=== PATIENT | male | born 1950 | race African-American/Black ===

== ENCOUNTER 2021-06-20 11:44 | Outpatient (CLI) | payer MEDICARE ==
--- NOTE | 2021-06-20 13:30 | Ultrasound Report ---
ULTRASOUND SCROTUM INDICATION: R10.2. COMPARISON None available. FINDINGS -- RIGHT TESTIS: Size: 3.7 x 1.6 x 2.9 cm. Echotexture: Normal. Color Doppler Flow: Normal. Lesions: None. EPIDIDYMIS: Size: Normal. Echotexture: Normal. Color Doppler Flow: Normal. Lesions: Small 1 cm ep ididymal head cyst Hydrocele: None. Varicocele: None. Additional Findings: None. FINDINGS -- LEFT TESTIS: Size: 3.5 x 1.6 x 2.2 cm. Echotexture: Normal. Color Doppler Flow: Normal. Lesions: None. EPIDIDYMIS: Size: Normal. Echotexture: Normal. Color Doppler Flow: Normal. Lesions: None. Hydrocele: None. Varicocele: None. Additional Findings: Probable right inguinal hernia containing bowel IMPRESSION: 1. Probable bowel containing right inguinal hernia. CT pelvis may be confirmatory 2. 1 cm right epididymal head cyst Signer Name: Arnoldo Benítez MD Signed: 06/20/2021 1:26 PM Workstation Name: [id number]
== END 2021-06-20 11:45 | disposition home or self-care (01) ==
LOC: US 11:44
PROVIDERS: ATTEND Surgery
DX: N50.3 Cyst of epididymis (principal); K40.91 Unilateral inguinal hernia, without obstruction or gangrene, recurrent
CPT/HCPCS: 93975

== ENCOUNTER 2021-07-13 10:12 | Day surgery (SDC) | payer MEDICARE ==
[~2021-07-13 10:12] MED LIST: ceFAZolin/STERILE WATER 2 GM/20 ML SYRINGE IV SCH
[2021-07-13] MEDS ORDERED: LACTATED RINGERS 1,000 ML ONE (10:38)
[2021-07-13] MEDS ORDERED: MAGNESIUM OXIDE 400 MG TAB PO SCH (10:44)
[2021-07-13] MEDS ORDERED: ACETAMINOPHEN 325 MG TAB PO ONE (10:44)
[2021-07-13] MEDS ORDERED: HYDROmorphone 0.5 MG/0.5 ML INJ IV PRN ×2 (10:45)
[2021-07-13] MEDS ORDERED: ONDANSETRON 4 MG/2 ML INJ IV PRN (10:45)
[2021-07-13] MEDS ORDERED: LACTATED RINGERS 1,000 ML IV SCH (10:45)
--- NOTE | 2021-07-13 10:46 | Anesthesia Day of Surgery ---
Anesthesia Day of Surgery - Day of Surgery Patient Examined: Yes Patient H&P Reviewed: Yes Patient is NPO: Yes
--- NOTE | 2021-07-13 10:47 | Anesthesia Consultation ---
Anesthesia Consult and Med Hx Date of service: 07/13/21 - Airway Anesthetic Teeth Evaluation: Good (Two missing) ROM Head & Neck: Adequate Mental/Hyoid Distance: Adequate Mallampati Class: Class II Intubation Access Assessment: Good - Pre-Operative Health Status ASA Pre-Surgery Classification: ASA2 Proposed Anesthetic Plan: General - Pulmonary Hx Smoking: No Hx Sleep Apnea: No - Central Nervous System Hx Psychiatric Problems: No - Gastrointestinal Hx Gastroesophageal Reflux Disease: No - Other Systems Hx Cancer: No Hx Obesity: No
[2021-07-13] MEDS ORDERED: propofoL 200 MG/20 ML VIAL IV ONE (10:52)
[2021-07-13] MEDS ORDERED: ROCURONIUM 50 MG/5 ML INJ IV ONE ×2 (10:52→14:35)
[2021-07-13] MEDS ORDERED: LIDOCAINE MPF (2%) 20 MG/1 ML VIAL 5 ML ONE (10:52)
[2021-07-13] MEDS ORDERED: fentaNYL 100 MCG/2 ML INJ ONE (10:52)
[2021-07-13] MEDS ORDERED: CELECOXIB 200 MG CAP PO SCH (11:00)
[2021-07-13] MEDS ORDERED: MIDAZOLAM 2 MG/2 ML INJ IV NR (12:00)
[2021-07-13] MEDS ORDERED: LIDOCAINE (1%) 10 MG/1 ML VIAL 20 ML MDV ONE (13:52)
[2021-07-13] MEDS ORDERED: BUPIVACAINE/PF (0.5%) 5 MG/1 ML 30 ML VIAL INFILTRATI ONE ×2 (13:52→14:26)
[2021-07-13] MEDS ORDERED: LIDOCAINE (1%) 10 MG/1 ML VIAL 20 ML MDV INFILTRATI ONE (14:26)
[2021-07-13] MEDS ORDERED: WATER FOR IRRIG STERILE 1,500 ML BOTTLE IR ONE (14:27)
[2021-07-13] MEDS ORDERED: dexAMETHasone 20 MG/5 ML VIAL ONE (14:35)
[2021-07-13] MEDS ORDERED: GLYCOPYRROLATE 0.4 MG/2 ML INJ ONE ×3 (14:35→14:57)
[2021-07-13] MEDS ORDERED: KETOROLAC 30 MG/1 ML INJ ONE (14:35)
[2021-07-13] MEDS ORDERED: ONDANSETRON 4 MG/2 ML INJ ONE (14:35)
--- NOTE | 2021-07-13 15:11 | Short Stay Summary ---
Short Stay Documentation Date of service: 07/13/21 - History Principal diagnosis: right inguinal hernia H&P: obtained from office - Allergies and Medications Current Medications: Allergies No Known Allergies Allergy (Unverified 07/04/21 11:49) Home Medications Medication Instructions Recorded Confirmed Last Taken Type No Known Home Medications [No 07/04/21 07/04/21 Unknown History Reported Home Medications] Active Medications Cefazolin Sodium (Cefazolin/Sterile Water 2 Gm/20 Ml Syringe) 2 gm IV PREOP DANYELLE Celecoxib (Celecoxib 200 Mg Cap) 200 mg PO PREOP DANYELLE Last Admin: 07/13/21 11:10 Dose: 200 mg Hydromorphone HCl (Hydromorphone 0.5 Mg/0.5 Ml Inj) 0.25 mg IV Q10MIN PRN PRN Reason: Pain, Moderate (4-6) Stop: 07/14/21 10:44 Hydromorphone HCl (Hydromorphone 0.5 Mg/0.5 Ml Inj) 0.5 mg IV Q10MIN PRN PRN Reason: Pain , Severe (7-10) Stop: 07/14/21 10:44 Lactated Ringer's (Lactated Ringers) 1,000 mls @ 125 mls/hr IV DIRECT DANYELLE Last Admin: 07/13/21 11:30 Dose: 125 mls/hr Magnesium Oxide (Magnesium Oxide 400 Mg Tab) 400 mg PO ONCE DANYELLE Last Admin: 07/13/21 11:10 Dose: 400 mg Midazolam HCl (Midazolam 2 Mg/2 Ml Inj) 2 mg IV PREOP NR Stop: 07/13/21 23:59 Last Admin: 07/13/21 13:00 Dose: 2 mg Ondansetron HCl (Ondansetron 4 Mg/2 Ml Inj) 4 mg IV ONCE PRN PRN Reason: Nausea And Vomiting - Brief post op/procedure progress note Date of procedure: 07/13/21 Pre-op diagnosis: right inguinal hernia Post-op diagnosis: same Procedure: robotic assisted right inguinal hernia repair with mesh Anesthesia: GETA, local, other (right ilioinguinal nerve block) Findings: indirect inguinal hernia on right Surgeon: ZARA GARCIA Saddle Stitch Operator: ISAAC RICHARDSON Estimated blood loss: minimal Pathology: none Condition: stable - Hospital course Hospital course: Pt observed in PACU and discharged to home in stable condition - Disposition Condition at discharge: Good Disposition: 01 HOME / SELF CARE / HOMELESS Short Stay Discharge Plan Activity: other (no heavy lifting) Diet: regular Wound: open to air, per your surgeon's advice Additional Instructions: SEE PRINTED INSTRUCTIONS Follow up with: PRIMARY CARE, [Primary Care Provider] - 7 Days ZARA GARCIA DO [Staff Physician] - 14 Days Prescriptions: Ibuprofen [Motrin] 800 mg PO Q8HR PRN #30 tablet PRN Reason: Pain, Moderate (4-6) HYDROcodone/APAP 5-325 [[place] 5/325] 1 each PO Q6HR PRN #20 tablet PRN Reason: Pain , Severe (7-10)
[2021-07-13] MEDS ORDERED: HYDROcodone/ACETAMINOPHEN 5-325 MG TAB ONE (15:58)
[2021-07-13] MEDS ORDERED: HYDROcodone/ACETAMINOPHEN 5-325 MG TAB PO PRN (16:17)
[2021-07-13 16:49] VITALS: BP 149/73
--- NOTE | 2021-07-13 17:53 | Post Anesthesia Evaluation ---
- Post Anesthesia Evaluation Patient Participated: Yes Airway Patent: Yes Stable Respiratory Function: Yes Nausea/Vomiting: No Temp > 96.8F: Yes Pain Manageable: Yes Adequeate Hydration: Yes Anesthesia Complications: No Block Receding Appropriately: Not Applicable Patient on Ventilator: No
--- NOTE | 2021-07-16 12:53 | Operative Report ---
Operative Report Operative Report: Date of procedure: 07/13/21 Pre-op diagnosis: right inguinal hernia Post-op diagnosis: same Procedure: robotic assisted right inguinal hernia repair with mesh Anesthesia: GETA, local, other (right ilioinguinal nerve block) Findings: indirect inguinal hernia on right Surgeon: ZARA GARCIA Cartridge Gauger: ISAAC RICHARDSON Estimated blood loss: minimal Pathology: none Condition: stable Hospital course: Pt observed in PACU and discharged to home in stable condition Condition at discharge: Good Disposition: 01 HOME / SELF CARE / HOMELESS HPI and indication: Patient is a 71-year-old male who was referred to the surgery clinic for a bulge in the right groin. He was found to have a reducible right inguinal hernia on physical exam. It was recommended that the hernia be repaired. I discussed all risk, benefits, alternatives to repair with the patient and questions were answered. I explained that if the hernia was found on the left side at the same time, this would be fixed as well. The patient was agreeable. Consent obtained for robotic assisted right inguinal hernia repair with mesh, possible left, possible open. The entire interview was conducted using the [employer] cushion builder. Procedure in detail: Patient was identified in the preoperative area, take back to operating room placed on operative table in supine position. After anesthesia was induced both arms were tucked and all bony prominences padded appropriately. A Phan catheter was sterilely placed by the circulating nurse. The abdomen and b/l groins were then prepped and draped in usual sterile fashion and a timeout performed. Local anesthetic was infiltrated to skin at the intended incision sites. A supraumbilical incision was made through which a Veress needle was inserted. Veress needle positioning was confirmed using saline drop test and the abdomen insufflated to 15 mmHg. Once the abdomen was insufflated, the Veress needle was removed and a 5 mm Optiview trocar was placed as incision. The abdomen is inspected there was no underlying injury to any of the abdominal structures. Patient was placed in Trendelenburg and the pelvis examined. There was a right inguinal hernia and no obvious hernia on the left. At this point, an 8 mm right upper quadrant and left upper quadrant robotic trocars were then placed under direct visualization. The 5 mm supraumbilical trocar was removed and replaced with a 12 mm balloon trocar under direct visualization. A Ray-Mely was placed into the abdomen. The robot was then docked. A fenestrated bipolar was placed into arm #2 and a monopolar scissor in arm #1. The surgeon was then transferred to the console. First, I created a right sided preperitoneal flap. The peritoneum was scored ap proximately 5 to 6 cm from the hernia defect. The peritoneum was then incised from the midline to the ASIS. The preperitoneal flap was then developed in an avascular plane. I first defined the medial margin by dissecting to the pubic tubercle. The pubic tubercle was cleared of overlying fatty tissue using blunt dissection. I then created the lateral margin in a similar fashion. Great care was taken to avoid injury to any nerves. There was a direct inguinal hernia and the hernia sac was gently reduced using blunt dissection and transecting cremasteric fibers with electrocautery. During the dissection, the cord structures were identified and protected. The cord structures and vas deferens were visualized throughout the entire dissection. Once the hernia sac was completely reduced, the peritoneal flap was checked for hemostasis. Any additional cremasteric fibers that were were tenting up the peritoneum were divided. Hemostasis was carefully ensured. The hernia was repaired using a RIGHT LARGE 3D max mesh. The mesh along with suture material was placed into the abdomen by the assistant grocery. The mesh was positioned into the preperitoneal flap in the usual fashion. The medial portion of the mesh was sutured to pubic tubercle using an interrupted 2-0 Vicryl stitch. The lateral aspect of the mesh was sutured to the anterior lateral abdominal wall using a 2-0 Vicryl interrupted stitch. The mesh was seen to lay flat in the pocket with excellent coverage. A 18 F needle/angiocath was inserted through the right lower abdominal wall into the preperitoneal pocket by the assistant grocery surgeon. The peritoneum was then reapproximated using 3-0 running V- Loc stitch. The entirety of the mesh was covered with peritoneum. The robot was then undocked and the surgeon scrubbed back in. The remainder of the case was performed laparoscopically. All sharp materials along with a Ray-Mely were removed from the abdomen under direct visualization. The 12 mm port was removed and the fascia closed using a interrupted 0 Vicryl stitch. The abdomen was then slowly desufflated and the mesh was seen to lay flat in the preperitoneal space. The remaining trocars were removed. Preperitoneal air was evacuated via the angiocath and it was then removed. Skin incisions were once again infiltrated with local anesthetic. RIGHT ilioinguinal nerve block was also performed with 5 cc of local anesthetic. The skin incisions were approximated with 4-0 Monocryl subcuticular stitches and skin glue. At the end of the case all sponge, instrument, sharp counts were correct x2. Patient was awoken from anesthesia and Phan catheter removed. Both testicles were palpated in the scrotum in anatomic position. The patient was taken to PACU in stable condition.
== END 2021-07-13 16:45 | disposition home or self-care (01) ==
LOC: OR 10:12
PROVIDERS: ATTEND Surgery
DX: K40.90 Unilateral inguinal hernia, without obstruction or gangrene, not specified as recurrent (principal); Z20.822 Contact with and (suspected) exposure to COVID-19; Z79.899 Other long term (current) drug therapy; Z87.440 Personal history of urinary (tract) infections; Z98.41 Cataract extraction status, right eye; Z98.42 Cataract extraction status, left eye; Z98.890 Other specified postprocedural states
CPT/HCPCS: 49650; 81001; 87086; 99283; C1781; J0690; J1100; J1815; J1885; J2250; J2405; J2704; J3010; J3490; J7120; U0003

== ENCOUNTER 2021-07-13 21:22 | Emergency (ER) | payer MEDICARE ==
--- NOTE | 2021-07-13 22:59 | Emergency Department Report ---
ED Male HPI - General Chief complaint: Urogenital-Male Stated complaint: DIFF URINATING Time Seen by Provider: 07/13/21 22:56 Source: patient Mode of arrival: Stretcher Limitations: No Limitations - History of Present Illness Initial comments: Patient is a 71-year-old male who presents emergency room with difficulty urinating. Patient states he has been drinking lots of water and juices and is unable to urinate. Patient states he is only urinating a small amount and is having a lot of pain and difficulty with it. Patient states the pain is only while trying to urinate. Patient states he feels like his bladder is full. Patient denies chest pain. Patient denies shortness of breath. Patient denies nausea vomiting. Patient denies recent travel. Patient denies recent international travel. Patient denies exposure to the novel coronavirus. Patient denies sick contacts. Patient denies fever and chills. Patient denies cough. Patient denies diarrhea. Patient denies coming in contact with anybody with symptoms of the novel coronavirus. -: Sudden Severity: moderate Severity scale (0 -10): 3 Consistency: intermittent Improves with: rest Worsens with: urination, movement urinary retention - Related Data Sexually active: No Previous Rx's Medication Instructions Recorded Last Taken Type HYDROcodone/APAP 5-325 [[place] 1 each PO Q6HR PRN #20 tablet 07/13/21 Unknown Rx 5/325] Ibuprofen [Motrin] 800 mg PO Q8HR PRN #30 tablet 07/13/21 Unknown Rx RX: Ciprofloxacin HCl 500 mg PO BID 10 Days #20 tab 07/13/21 Unknown Rx [Ciprofloxacin TAB] Allergies Allergy/AdvReac Type Severity Reaction Status Date / Time No Known Allergies Allergy Unverified 07/04/21 11:49 ED Review of Systems ROS: Stated complaint: DIFF URINATING Other details as noted in HPI Constitutional: denies: chills, fever Eyes: denies: eye pain, eye discharge, vision change ENT: denies: ear pain, throat pain Respiratory: denies: cough, shortness of breath, wheezing Cardiovascular: denies: chest pain, palpitations Endocrine: no symptoms reported Gastrointestinal: denies: abdominal pain, nausea, diarrhea Genitourinary: as per HPI. denies: urgency, dysuria Musculoskeletal: denies: back pain, joint swelling, arthralgia Skin: denies: rash, lesions Neurological: denies: headache, weakness, paresthesias Psychiatric: denies: anxiety, depression Hematological/Lymphatic: denies: easy bleeding, easy bruising ED Past Medical Hx - Past Medical History Previous Medical History?: No Hx HIV: No - Surgical History Past Surgical History?: No - Family History Family history: no significant - Social History Smoking Status: Never Smoker Substance Use Type: None - Medications Home Medications: Home Medications Medication Instructions Recorded Confirmed Last Taken Type HYDROcodone/APAP 5-325 [[place] 1 each PO Q6HR PRN #20 tablet 07/13/21 Unknown Rx 5/325] Ibuprofen [Motrin] 800 mg PO Q8HR PRN #30 tablet 07/13/21 Unknown Rx RX: Ciprofloxacin HCl 500 mg PO BID 10 Days #20 tab 07/13/21 Unknown Rx [Ciprofloxacin TAB] ED Physical Exam - General Limitations: No Limitations General appearance: alert, in no apparent distress - Head Head exam: Present: atraumatic, normocephalic - Eye Eye exam: Present: normal appearance - ENT ENT exam: Present: mucous membranes moist - Neck Neck exam: Present: normal inspection - Respiratory Respiratory exam: Present: normal lung sounds bilaterally. Absent: respiratory distress - Cardiovascular Cardiovascular Exam: Present: regular rate, normal rhythm. Absent: systolic murmur, diastolic murmur, rubs, gallop - GI/Abdominal GI/Abdominal exam: Present: soft, normal bowel sounds - Rectal Rectal exam: Present: deferred - Extremities Exam Extremities exam: Present: normal inspection - Back Exam Back exam: Present: normal inspection - Neurological Exam Neurological exam: Present: alert, oriented X3 - Psychiatric Psychiatric exam: Present: normal affect, normal mood - Skin Skin exam: Present: warm, dry, intact, normal color. Absent: rash ED Course Vital Signs 07/13/21 07/13/21 07/13/21 22:19 22:57 23:02 Temperature 98 F Pulse Rate 79 Respiratory 18 23 Rate Blood Pressure 148/82 O2 Sat by Pulse 100 100 Oximetry 07/13/21 07/13/21 07/13/21 23:15 23:31 23:45 Temperature Pulse Rate 77 74 77 Respiratory 17 17 18 Rate Blood Pressure 136/66 131/59 121/59 O2 Sat by Pulse Oximetry - Reevaluation(s) Reevaluation #1: Patient had a Phan placed and patient states he is feeling better. Patient will be discharged home with Phan. I discussed all results and clinical findings with patient. I discussed plan of care with patient. Patient agrees with plan of care. Patient is stable for discharge. Patient will be discharged home. Patient given discharge instructions. Patient voiced understanding of discharge instructions. 07/13/21 23:39 ED Medical Decision Making - Medical Decision Making Patient is a 71-year-old male who presents with difficulty urinating and urinating small amounts. Patient had a Phan placed which drained 2000 mL of yellow urine. Patient a UA done which shows a UTI. Patient was treated with antibiotics. Patient stable for discharge. Patient not require any further emergency medical services. Patient discharged home with Phan. Patient will need to follow-up with a urologist. I discussed all results and clinical findings with patient. I discussed plan of care with patient. Patient agrees with plan of care. Patient is stable for d ischarge. Patient will be discharged home. Patient given discharge instructions. Patient voiced understanding of discharge instructions. - Differential Diagnosis Urinary retention, UTI., Prostatitis Critical care attestation.: If time is entered above; I have spent that time in minutes in the direct care of this critically ill patient, excluding procedure time. ED Disposition Clinical Impression: Urinary retention Urinary tract infection Qualifiers: Urinary tract infection type: acute cystitis Hematuria presence: with hematuria Qualified Code(s): N30.01 - Acute cystitis with hematuria Disposition: HOME / SELF CARE / HOMELESS Is pt being admited?: No Does the pt Need Aspirin: No Condition: Stable Instructions: Urinary Tract Infection, Adult, Indwelling Urinary Catheter Care, Adult, [id number], Acute Urinary Retention, Male Additional Instructions: Patient to follow-up with primary care in 2 to 3 days. Patient to follow-up with urologist in 2 to 3 days. Patient to rest. Patient to increase water. Patient to avoid strenuous exercise or heavy lifting until cleared by urologist and primary care. Patient to leave Phan until removed by urologist.. Patient to take Tylenol or ibuprofen as needed for pain. Patient to take meds as directed. Patient to return to the ER if condition worsens, changes or new symptoms arise. Prescriptions: RX: Ciprofloxacin HCl [Ciprofloxacin TAB] 500 mg PO BID 10 Days #20 tab Referrals: GRAHAM AGUILAR MD [Staff Physician] - 2-3 Days Time of Disposition: :43
[2021-07-13 23:31] LABS: Bilirubin,Urine NEG (Negative); Blood,Urine NEG (Negative); Color,Urine Straw (Yellow); Hyaline Casts,Urine 2 /LPF; Protein,Urine <15 mg/dL mg/dL (Negative); Urobilinogen,Urine < 2.0 mg/dL (<2.0)
[2021-07-14 00:02] VITALS: BP 121/59
== END 2021-07-14 03:00 | disposition home or self-care (01) ==
LOC: ED 21:22
DX: R33.9 Retention of urine, unspecified (principal); N39.0 Urinary tract infection, site not specified; Z79.899 Other long term (current) drug therapy
CPT/HCPCS: 51702; 81001; 87086; 99283